=== PATIENT | male | born 1975 | race Caucasian/White ===

== ENCOUNTER 2021-06-22 10:54 | Emergency (ER) | payer BC ==
--- NOTE | 2021-06-22 11:01 | ED Physician Documentation ---
PD HPI DYSPNEA - Stated complaint Stated Complaint: BEE STING/SOA - History obtained from History obtained from: Patient - History of Present Illness Timing - onset: How many minutes ago (30) Timing - duration: Minutes (Patient was out running and got stung by a bee in the back of the neck under the edge of his. He brushed it off after the sting. He felt okay initially but about 15 or 20 minutes later started having itchiness slightly lightheaded and feeling of lips swelling. Denies throat swelling or dyspnea.) Timing - details: Abrupt onset Inciting event(s): No: URI, Allergic rxn/anaphylaxis Improved by: Rest Associated symptoms: Other (lightheaded with itching and hives developing, with feeling lips tingling/swelling.). No: Fever, Cough, Wheezing Similar symptoms before: Has not had sx before Review of Systems Constitutional: denies: Fever, Chills Nose: denies: Rhinorrhea / runny nose, Congestion Throat: denies: Sore throat Respiratory: denies: Cough GI: denies: Abdominal Pain, Nausea, Vomiting, Diarrhea Skin: reports: Rash (hives developing the past 10-15 minutes) Neurologic: reports: Generalized weakness. denies: Focal weakness, Numbness, Syncope PD PAST MEDICAL HISTORY - Past Medical History Cardiovascular: None Respiratory: None Neuro: None Endocrine/Autoimmune: None - Present Medications Home Medications: Ambulatory Orders Medication Instructions Recorded Confirmed EPINEPHrine [Epinephrine] 0.3 mg IJ ONCE PRN #1 syr 06/22/21 Methylphenidate HCl [Concerta] 1 tab PO DAILY 06/22/21 06/22/21 - Allergies Allergies/Adverse Reactions: Allergies Allergy/AdvReac Type Severity Reaction Status Date / Time No Known Drug Allergies Allergy Verified 06/22/21 11:20 PD ED PE NORMAL - Vitals Vital signs reviewed: Yes - General General: Alert and oriented X 3, Well developed/nourished - HEENT HEENT: Pharynx benign (no obvious intraoral swelling) - Neck Neck: Supple, no meningeal sign, No adenopathy - Cardiac Cardiac: No murmur. No: RRR (regular but mild tachycardia) - Respiratory Respiratory: Clear bilaterally - Abdomen Abdomen: Soft, Non tender - Derm Derm: Warm and dry. No: Normal color (mild pallor) - Extremities Extremities: Normal ROM s pain, No edema, No calf tenderness / cord - Neuro Neuro: Alert and oriented X 3, No motor deficit, Normal speech Results - Vitals Vitals: Vital Signs - 24 hr 06/22/21 06/22/21 06/22/21 10:59 11:27 11:36 Temperature 36.6 C Heart Rate 112 H 88 89 Respiratory 20 16 21 Rate Blood Pressure 145/113 H 108/89 H 122/89 H O2 Saturation 100 99 99 06/22/21 06/22/21 12:44 13:21 Temperature Heart Rate 78 81 Respiratory 15 19 Rate Blood Pressure 117/78 118/80 O2 Saturation 96 96 Oxygen O2 Source Room air - Labs Labs: Laboratory Tests 06/22/21 11:31 POC Whole Bld Glucose 128 H PD MEDICAL DECISION MAKING - ED course Complexity details: re-evaluated patient (Watched for over 2 hours without return of symptoms. Feeling okay. ), considered differential (Having some general symptoms of hives and some lightheaded, so gave IV fluids and IM epi. He is feeling much improved with these meds. ), d/w patient Departure - Departure Disposition: 01 Home, Self Care Clinical Impression: Allergic reaction to bee sting Condition: Stable Record reviewed to determine appropriate education?: Yes Instructions: ED Bite Sting Insect Gen Allergic React Prescriptions: EPINEPHrine [Epinephrine] 0.3 mg IJ ONCE PRN #1 syr PRN Reason: Anaphylaxis Comments: Rest at home today. Getting warm or hot or a hot shower may increase the amount of itchiness so stay cool and rested today. Add some Benadryl if needed for mild itching or so. It would make sense to carry an EpiPen with you when you are out jogging or outdoors in case you have a strong reaction to a bee sting again. I wrote a prescription for that. Return if significant symptoms develop again through the day. Otherwise there commonly be can be some mild up-and-down itchiness for a day or 2. Discharge Date/Time: 06/22/21 13:50
[2021-06-22] MEDS ORDERED: diphenhydrAMINE INJ 50 MG/ML VIAL IVP STA (11:06)
[2021-06-22] MEDS ORDERED: EPINEPHrine 1 MG/ML AMP IM STA (11:06)
[2021-06-22] MEDS ORDERED: DEXAMETHASONE 10 MG/ML VIAL IVP STA (11:06)
[2021-06-22] MEDS ORDERED: SODIUM CHLORIDE 0.9% 1,000 ML IV STA (11:07)
[2021-06-22] MEDS ORDERED: EPINEPHrine 1 MG/ML AMP ONE (11:11)
[2021-06-22] MEDS ORDERED: diphenhydrAMINE INJ 50 MG/ML VIAL ONE (11:11)
[2021-06-22 13:21] VITALS: BP 118/80
== END 2021-06-22 13:50 | disposition home or self-care (01) ==
LOC: ED 10:54
DX: T63.441A Toxic effect of venom of bees, accidental (unintentional), initial encounter (principal); X58.XXXA Exposure to other specified factors, initial encounter; L50.0 Allergic urticaria; R42 Dizziness and giddiness
CPT/HCPCS: 96372; 96374; 96375; 99284; J1200

== ENCOUNTER 2022-08-01 08:00 | Outpatient (CLI) | payer SELFPAY | END 2022-08-01 23:59 | disposition home or self-care (01) | LOC: LAB.N 08:00 | PROVIDERS: ATTEND Nurse Practitioner | DX: L72.3 Sebaceous cyst (principal) | CPT/HCPCS: 87070; 87205 ==